=== PATIENT | male | born 1950 | race Hispanic/Latino ===

== ENCOUNTER 2018-12-08 09:31 | Outpatient (CLI) | payer MEDICARE, BC | END 2018-12-08 09:32 | disposition home or self-care (01) | LOC: LAB 09:31 | DX: Z01.812 Encounter for preprocedural laboratory examination (principal); Z01.811 Encounter for preprocedural respiratory examination; Z01.810 Encounter for preprocedural cardiovascular examination; I44.0 Atrioventricular block, first degree ==